=== PATIENT | male | born 1955 | race Caucasian/White ===

== ENCOUNTER 2024-01-15 13:54 | Outpatient (AMB) | payer OTHER, SELFPAY ==
--- NOTE | 2024-01-15 14:20 | MHC.OFFVIS ---
Intake Visit Reasons: nocturia Intake Note: New patient is present for Urgency/Prostatism Was previous patient at [facility] Patient states he had A Cystoscopy done at [facility] and had complications after. 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 He is a patient of Dr. Duarte. He has seen for the following urologic conditions - lower urinary tract symptoms - possible Peyronie's disease Lower urinary tract symptoms Prior evaluation with gross hematuria Cystoscopy mid 2022 Thinks has deviation of penis since then Nocturia 2-3 Hesitancy with urination Trial daily tadalafil. He will take photos to show me at next visit regarding penile curvature [facility] Medical History (Updated 01/15/24 @ 14:51 by Ronnell Hermosillo MD) Gross hematuria Prostatism Lung nodules Hyperlipidemia Diverticulitis of colon Back pain Surgical History (Updated 01/15/24 @ 14:16 by MARIO Sewell) H/O inguinal hernia repair History of hand surgery Family History (Updated 01/15/24 @ 14:17 by MARIO Sewell) Father Prostate cancer Social History (Updated 01/15/24 @ 14:17 by MARIO Sewell) Patient Tobacco Use Status: Current someday Tobacco user Review of Systems Const Denies chills and Denies fever(s) Card Reports no additional complaints and Denies syncope Resp Denies cough GI Denies abdominal pain and Denies heartburn Reports as per HPI and Denies change in libido Neuro Denies syncope Psych Denies change in libido Endo Denies change in libido Physical Exam Const General: cooperative, healthy appearing, comfortable and no acute distress Orientation/consciousness: patient oriented x3 HEENT Face and sinus: Yes normal facial exam Mouth: moist mucous membranes Neck Neck: Yes normal visual inspection, Yes full ROM and Yes trachea midline Chest Chest palpation & inspection: normal inspection of the chest Resp Effort & Inspection: normal respiratory effort, able to speak in complete sentences and no respiratory distress GI Inspection: Yes normal to inspection Back/Spine/Pelvis Cervical Spine: normal cervical lordosis Thoracic/Lumbar Spine: thoracic and lumbar spine normal to inspection Skin General skin exam: no rashes or lesions noted Neuro General: patient oriented x3, gait normal, tone normal and moves all extremities Extrem General: Yes normal to inspection and Yes capillary refill normal Office Procedures Post Void Residual Post Residual Void Post Void Residual (PVR): 0 [id number] Void Residual by ultrasound Results AMB Urinalysis, Automated UA Leukoctes 125 Evaristo/uL Last Edit by Clover Bahena Guillermina on 01/15/24 14:36 UA Nitrite Negative Last Edit by Clover Bahena [facility] on 01/15/24 14:36 UA Urobilinogen 0.2 mg/dL Last Edit by Clover Bahena A on 01/15/24 14:36 UA Protein 0 mg/dL Last Edit by Clover Bahena [facility] on 01/15/24 14:36 UA pH 7.0 Last Edit by Clover Bahena [facility] on 01/15/24 14:36 UA Blood 0 Haider/uL Last Edit by Clover Bahena [facility] on 01/15/24 14:36 UA Specific [place] 1.010 Last Edit by Clover Bahena [facility] on 01/15/24 14:36 UA Ketone Negative Last Edit by Clover Bahena [facility] on 01/15/24 14:36 UA Bilirubin 0 mg/dL Last Edit by Clover Bahena [facility] on 01/15/24 14:36 UA Glucose 0 mg/dL Last Edit by Clover Bahena [facility] on 01/15/24 14:36 Results Reviewed Results Reviewed: Laboratory Last Values Urine pH (Auto) 7.0 01/15/24 14:28 Specific [place] (Auto) 1.010 01/15/24 14:28 Urine Protein (Auto) 0 mg/dL 01/15/24 14:28 Glucose (UA)(Auto) 0 mg/dL 01/15/24 14:28 Urine Ketones (Auto) Negative 01/15/24: Urine Blood (Auto) 0 Haider/uL 01/15/24 14:28 Urine Nitrite (Auto) Negative 01/15/24 14:28 Urine Bilirubin (Auto) 0 mg/dL 01/15/24 14:28 Urine Urobilinogen (Auto) 0.2 mg/dL 01/15/24 14:28 Leukocyte Esterase (Auto) 125 Evaristo/uL 01/15/24 14:28 Assessment & Plan Assessment & Plan (1) Peyronie's disease: Code(s): N48.6 - Induration penis plastica Category: Medical (2) Urinary urgency: Code(s): R39.15 - Urgency of urination Category: Medical (3) Nocturia more than twice per night: Code(s): R35.1 - Nocturia Category: Medical Plan Trial tadalafil Orders: Orders AMB Post Void Residual by ultrasound Today R39.15 - Urgency of urination AMB Urinalysis Automated Today Z13.9 - Encounter for screening, unspecified Medications: New tadalafil 5 mg PO DAILY 90 days 90 tabs 0RF sexual activity R35.1 - Nocturia Patient Instructions: Imaging studies, laboratory and physical exam results were discussed and reviewed in detail. No major barriers to patient understanding were identified. An opportunity to ask questions regarding the treatment plan was provided. All questions were answered. The patient expressed understanding and agreement with the above treatment plan. The patient is aware they should contact our office by phone for worsening of their current condition or the appearance of new urologic symptoms. Compliance is encouraged with any medications and followup testing that is ordered. It is a privilege to participate in the urologic care of your patient. If you have any questions or concerns regarding treatment for the above conditions, or other urologic issues, please do not hesitate to contact me. The office telephone contact is [phone]. This note is constructed using voice recognition software. While every effort has been made to ensure accuracy network associate errors may have been included. Yours sincerely, Dr Ronnell Hermosillo MD, [facility] - Urology Providers of Expert, Compassionate Care for the Genitourinary System Coding Level of Care Code New Pt Level 4 (23272) Diagnoses Peyronie's disease N48.6 Urinary urgency R39.15 Nocturia more than twice per night R35.1 CPT Codes Post Residual Void - PVR CPT Code: 90362-[id number] Void Residual by ultrasound ([id number])
== END 2024-01-15 14:55 | disposition home or self-care (01) ==
PROVIDERS: PCP Internal Medicine; Visit Provider Urology
DX: N48.6 Induration penis plastica (principal); R39.15 Urgency of urination; R35.1 Nocturia; Z13.9 Encounter for screening, unspecified
CPT/HCPCS: 99204

== ENCOUNTER → 2024-01-15 13:54 | Outpatient (BNVA) | payer OTHER, SELFPAY | PROVIDERS: PCP Internal Medicine; Visit Provider Urology | DX: R35.1 Nocturia (principal); R39.15 Urgency of urination; N48.6 Induration penis plastica | CPT/HCPCS: 51798; 81003 ==

== ENCOUNTER 2024-05-03 14:13 | Outpatient (AMB) | payer MEDICARE, SELFPAY ==
--- NOTE | 2024-05-03 14:33 | A.OFFVIS_ITS ---
Intake Visit Reasons: 3 month Med Review(Tadalafil) Intake Note: Patient is present for 3m med review Urology Medication:tadalafil Antibiotic Allergy:sulfa Blood Thinner:none Computer Aided Design Technician Required: No Allergies Sulfa (Sulfonamide Antibiotics) [Sulfa (Sulfonamides)] Allergy (Mild, Verified 05/03/24 14:34) RASH Medication List - Last Reconciled 05/03/24 by Ronnell Hermosillo MD guselkumab (Tremfya) 100 mg subcut Q8W pentoxifylline ER 400 mg PO BID 90 days tadalafil 5 mg PO DAILY 90 days vitamin E (dl, acetate) 450 mg PO DAILY 90 days HPI Comments Details: Tello is a very pleasant male. He is a patient of Dr. Duarte. He has seen for the following urologic conditions - lower urinary tract symptoms - Peyronie's disease Response to daily tadalafil adequate for erection and stabilizing bladder Does drink too much water before going to bed Primary issue currently is Peyronie's Discussed conservative Peyronie's protocol with combination medical therapy and vacuum pump Printed information provided Persistent microscopic hematuria with leukocytes. Peyronie's 45 degree upward curvature Trial combination medical therapy with vacuum pump Lower urinary tract symptoms Prior evaluation with gross hematuria - persistent microscopic hematuria Cystoscopy mid 2022 Thinks has deviation of penis since then Nocturia 2-3 Hesitancy with urination PFSH Medical History (Updated 01/15/24 @ 14:51 by Ronnell Hermosillo MD) Gross hematuria Prostatism Lung nodules Hyperlipidemia Diverticulitis of colon Back pain Surgical History (Updated 01/15/24 @ 14:16 by MARIO Sewell) H/O inguinal hernia repair History of hand surgery Family History (Updated 01/15/24 @ 14:17 by MARIO Sewell) Father Prostate cancer Social History (Updated 01/15/24 @ 14:17 by MARIO Sewell) Patient Tobacco Use Status: Current someday Tobacco user Review of Systems Const Denies chills and Denies fever(s) Card Reports no additional complaints and Denies syncope Resp Denies cough GI Denies abdominal pain and Denies heartburn Reports as per HPI and Denies change in libido Neuro Denies syncope Psych Denies change in libido Endo Denies change in libido Physical Exam Const General: cooperative, healthy appearing, comfortable and no acute distress Orientation/consciousness: patient oriented x3 HEENT Face and sinus: Yes normal facial exam Mouth: moist mucous membranes Neck Neck: Yes normal visual inspection, Yes full ROM and Yes trachea midline Chest Chest palpation & inspection: normal inspection of the chest Resp Effort & Inspection: normal respiratory effort, able to speak in complete sentences and no respiratory distress GI Inspection: Yes normal to inspection Back/Spine/Pelvis Cervical Spine: normal cervical lordosis Thoracic/Lumbar Spine: thoracic and lumbar spine normal to inspection Skin General skin exam: no rashes or lesions noted Neuro General: patient oriented x3, gait normal, tone normal and moves all extremities Extrem General: Yes normal to inspection and Yes capillary refill normal Results AMB Urinalysis, Automated UA Leukoctes 500 Evaristo/uL Last Edit by FAIZAN Sullivan on 05/03/24 14:54 UA Nitrite Negative Last Edit by FAIZAN Sullivan on 05/03/24 14:54 UA Urobilinogen 0.2 mg/dL Last Edit by FAIZAN Sullivan on 05/03/24 14:5 4 UA Protein 15 mg/dL Last Edit by Hiren Starks CCM on 05/03/24 14:54 UA pH 6.0 Last Edit by Hiren Starks CCM on 05/03/24 14:54 UA Blood 200 Haider/uL Last Edit by Hiren Starks CCM on 05/03/24 14:54 UA Specific [place] 1.020 Last Edit by FAIZAN Sullivan on 05/03/24 14: 54 UA Ketone Negative Last Edit by FAIZAN Sullivan on 05/03/24 14:54 UA Bilirubin 0 mg/dL Last Edit by Hiren Starks CCM on 05/03/24 14:54 UA Glucose 0 mg/dL Last Edit by Hiren Starks CCM on 05/03/24 14:54 Assessment & Plan Assessment & Plan (1) Peyronie's disease: Code(s): N48.6 - Induration penis plastica Category: Medical (2) Urinary urgency: Code(s): R39.15 - Urgency of urination Category: Medical (3) Nocturia more than twice per night: Code(s): R35.1 - Nocturia Category: Medical Plan Six-month follow-up Orders: Orders AMB Urinalysis Automated Today Z13.9 - Encounter for screening, unspecified Medications: New pentoxifylline ER 400 mg PO BID 90 days 180 tabs 1RF N48.6 - Induration penis plastica vitamin E (dl, acetate) 450 mg PO DAILY 90 days 90 caps 1RF N48.6 - Induration penis plastica Patient Instructions: Imaging studies, laboratory and physical exam results were discussed and reviewed in detail. No major barriers to patient understanding were identified. An opportunity to ask questions regarding the treatment plan was provided. All questions were answered. The patient expressed understanding and agreement with the above treatment plan. The patient is aware they should contact our office by phone for worsening of their current condition or the appearance of new urologic symptoms. Compliance is encouraged with any medications and followup testing that is ordered. It is a privilege to participate in the urologic care of your patient. If you have any questions or concerns regarding treatment for the above conditions, or other urologic issues, please do not hesitate to contact me. The office telephone contact is [phone]. This note is constructed using voice recognition software. While every effort has been made to ensure accuracy video game designer errors may have been included. Yours sincerely, Dr Ronnell Hermosillo MD, [facility] - Urology Providers of Expert, Compassionate Care for the Genitourinary System Coding Level of Care Code Est Pt Level 4 (24255) Diagnoses Peyronie's disease N48.6 Urinary urgency R39.15 Nocturia more than twice per night R35.1
== END 2024-05-03 15:12 | disposition home or self-care (01) ==
PROVIDERS: PCP Internal Medicine; Visit Provider Urology
DX: N48.6 Induration penis plastica (principal); R39.15 Urgency of urination; R35.1 Nocturia; Z13.9 Encounter for screening, unspecified
CPT/HCPCS: 99214

== ENCOUNTER → 2024-05-03 14:13 | Outpatient (BNVA) | payer OTHER, SELFPAY | PROVIDERS: PCP Internal Medicine; Visit Provider Urology | DX: N48.6 Induration penis plastica (principal); R39.15 Urgency of urination; R35.1 Nocturia | CPT/HCPCS: 81003 ==

== ENCOUNTER 2024-11-01 08:50 | Outpatient (AMB) | payer MEDICARE, SELFPAY ==
--- NOTE | 2024-11-01 09:06 | A.OFFVIS_ITS ---
Intake Visit Reasons: 6m follow up Intake Note: Patient is present for 6M F/U Urology Medication:TADALAFIL,VITAMIN E,PENTOXIFYLLINE Antibiotic Allergy:SULFA Blood Thinner:NONE Solution Make Up Operator Required: No Allergies Sulfa (Sulfonamide Antibiotics) [Sulfa (Sulfonamides)] Allergy (Mild, Verified 11/01/24 09:07) RASH HPI Comments Details: Tello is a very pleasant male. He is a patient of Dr. Duarte. He has seen for the following urologic conditions - lower urinary tract symptoms - Peyronie's disease Accompanied by Response to daily tadalafil adequate for erection and stabilizing bladder Peyronie's stabilized with protocol Reviewing photographs has dorsal distal curve Does report hinging Discussed options however distal hinge does not respond well to most therapy except for penile prosthetic placement At this stage willing to continue with observation UA normal Would like to try tamsulosin for urination Peyronie's 45 degree upward curvature Trial combination medical therapy with vacuum pump Lower urinary tract symptoms Prior evaluation with gross hematuria - persistent microscopic hematuria Cystoscopy mid 2022 Thinks has deviation of penis since then Nocturia 2-3 Hesitancy with urination PFSH Medical History (Updated 01/15/24 @ 14:51 by Ronnell Hermosillo MD) Gross hematuria Prostatism Lung nodules Hyperlipidemia Diverticulitis of colon Back pain Surgical History (Updated 01/15/24 @ 14:16 by MARIO Sewell) H/O inguinal hernia repair History of hand surgery Family History (Updated 01/15/24 @ 14:17 by MARIO Sewell) Father Prostate cancer Social History (Updated 01/15/24 @ 14:17 by AMRIO Sewell) Patient Tobacco Use Status: Current someday Tobacco user Review of Systems Const Denies chills and Denies fever(s) Card Reports no additional complaints and Denies syncope Resp Denies cough GI Denies abdominal pain and Denies heartburn Reports as per HPI and Denies change in libido Neuro Denies syncope Psych Denies change in libido Endo Denies change in libido Physical Exam Const General: cooperative, healthy appearing, comfortable and no acute distress Orientation/consciousness: patient oriented x3 HEENT Face and sinus: Yes normal facial exam Mouth: moist mucous membranes Neck Neck: Yes normal visual inspection, Yes full ROM and Yes trachea midline Chest Chest palpation & inspection: normal inspection of the chest Resp Effort & Inspection: normal respiratory effort, able to speak in complete sentences and no respiratory distress GI Inspection: Yes normal to inspection Back/Spine/Pelvis Cervical Spine: normal cervical lordosis Thoracic/Lumbar Spine: thoracic and lumbar spine normal to inspection Skin General skin exam: no rashes or lesions noted Neuro General: patient oriented x3, gait normal, tone normal and moves all extremities Extrem General: Yes normal to inspection and Yes capillary refill normal Results AMB Urinalysis, Automated UA Leukoctes 15 Evaristo/uL Last Edit by FAIZAN Sullivan on 11/01/24 09:40 UA Nitrite Negative Last Edit by FAIZAN Sullivan on 11/01/24 09:40 UA Urobilinogen 3.5 mg/dL Last Edit by FAIZAN Sullivan on 11/01/24 09:4 0 UA Protein 15 mg/dL Last Edit by FAIZAN Sullivan on 11/01/24 09:40 UA pH 7.0 Last Edit by FAIZAN Sullivan on 11/01/24 09:40 UA Blood 0 Haider/uL Last Edit by FAIZAN Sullivan on 11/01/24 09:40 UA Specific [place] 1.015 Last Edit by FAIZAN Sullivan on 11/01/24 09: 40 UA Ketone Negative Last Edit by FAIZAN Sullivan on 11/01/24 09:40 UA Bilirubin 0 mg/dL Last Edit by FAIZAN Sullivan on 11/01/24 09:40 UA Glucose 0 mg/dL Last Edit by FAIZAN Sullivan on 11/01/24 09:40 Assessment & Plan Assessment & Plan (1) Urinary urgency: Code(s): R39.15 - Urgency of urination Category: Medical (2) Peyronie's disease: Code(s): N48.6 - Induration penis plastica Category: Medical (3) Nocturia more than twice per night: Code(s): R35.1 - Nocturia Category: Medical Plan Three-month follow-up tele Orders: Orders AMB Urinalysis Automated Today Z13.9 - Encounter for screening, unspecified Medications: New tamsulosin 0.4 mg PO BEDTIME 90 days 90 caps 1RF N13.8 - Other obstructive and reflux uropathy, N40.1 - Benign prostatic hyperplasia with lower urinary tract symptoms, R35.1 - Nocturia Patient Instructions: This note is constructed using voice recognition software. While every effort has been made to ensure accuracy herd tester errors may have been included. Imaging studies, laboratory and physical exam results were discussed and reviewed in detail. No major barriers to patient understanding were identified. An opportunity to ask questions regarding the treatment plan was provided. All questions were answered. The patient expressed understanding and agreement with the above treatment plan. The patient is aware they should contact our office by phone for worsening of their current condition or the appearance of new urologic symptoms. Compliance is encouraged with any medications and followup testing that is ordered. It is a privilege to participate in the urologic care of your patient. If you have any questions or concerns regarding treatment for the above conditions, or other urologic issues, please do not hesitate to contact me. The office telephone contact is [phone]. Sincerely, Dr Ronnell Hermosillo MD, [facility] - Urology Compassionate Specialist Care for the Genitourinary System Coding Level of Care Code Est Pt Level 4 (48627) Diagnoses Urinary urgency R39.15 Peyronie's disease N48.6 Nocturia more than twice per night R35.1
--- OUTSIDE RECORDS SUMMARY | 2024-11-01 09:23 | XMS_ITS | Encounter Summary ---
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 Name Role Phone Jerry Aponte MD Primary Care Provider [phone] Reason for Referral * Imaging (Routine) - Authorized Specialty Diagnoses / Procedures Referred By Contac t Referred To Contact Radiology Diagnoses Encounter for screening for malignant neoplasm of lung in patient with less than 30 pack year smoking history Procedures LDCT LUNG SCREENING ANNUAL LDCT Lung Screening - 12 Month Follow Up LDCT Chest wo Contrast - Follow Up Incidental Finding Jerry Aponte MD [address] [place] [id number] Phone: tel: fax: [facility] Radiology - Central Scheduling [place] Phone: tel: fax: Referral ID Status Reason Start Date Expiration Date Visits Requested Visits Authorized [id number] Authorized Perform Procedure 10/04/2024 10/04/2025 1 1 Encounter Details Date Type Department Care Team (Late st Contact Info) Description 10/13/2024 Ancillary Orders [facility] Primary Care [place] [address] [place], [place] [id number] Jerry Aponte MD [address] [place] [id number] Encounter for screening for malignant neoplasm of lung in patient with less than 30 pack year smoking history (Primary Dx) Social History Tobacco Use Types Packs/Day Years Used Date Smoking Tobacco: Former Cigarettes 0.8 40 1 977 - 08/03/2016 Smokeless Tobacco: Never Alcohol Use Standard Drinks/Week Comments Yes 2 (1 standard drink = 0.6 oz pur e alcohol) Humiliation, Afraid, Rape, and Kick questionnair e Answer Date Recorded Within the last year, have y ou been afraid of your partner or ex-partner? No 09/27/2024 Emotionally Abused Not on file 09/27/2024 Physically Abused Not on file 09/27/2024 Sexually Abused Not on file 09/27/2024 Overall Financial Resource Strain (CARDIA) Answe r Date Recorded How hard is it for you to pa y for the very basics like food, housing, medical care, and heating? Not very hard 09/27/2024 PHQ-2 Answer Date Recorded Patient Health Questionnaire-2 Score 0 09/27/2024 Hunger Vital Sign Answer Date Recorded Within the past 12 months, y ou worried that your food would run out before you got the money to buy more. Never true 09/27/19 Ran Out of Food in the Last Year Not on file 09/27/2024 PRAPARE - Transportation Answer Date Re corded In the past 12 months, has l ack of transportation kept you from medical appointments or from getting medications? No 09/27/2024 Lack of Transportation (Non-Medical) Not on file 09/27/2024 Sex and Gender Information Value Date Recorded Sex Assigned at Not on file Legal Sex Male 3:27 PM EST Gender Identity Not on file Sexual Orientation Not on file documented as of this encounter Plan of Treatment Upcoming Encounters Date Type Department Care Team (Late st Contact Info) Description 10/05/2025 8:45 AM EST Office Visit [facility] Primary [facility] [place] [address] [id number] Jerry Aponte MD [address] [facility] [address] [place], [place] [id number] wellness documented as of this encounter Results * LDCT LUNG SCREENING ANNUAL (10/17/2024 4:18 PM EDT) Anatomical Region Laterality Modality Chest Computed Tomogra phy 10/18/2024 9:02 PM EDT Impressions 10/18/2024 9:03 PM EDT No suspicious pulmonary nodules. LRAD Assessment: ??Benign - 2 LRAD Recommendation: ??Follow up LDCT in 12 Months. ??An order for an LDCT Lung Screening Annual ([id number]) can be placed. LRAD Modifier: Narrative 10/18/2024 9:03 PM EDT CLINICAL HISTORY: Encounter for screening for malignant neoplasm of lung in patient with less than 30 pack year smoking history, Lung nodule, < 6mm, high cancer risk, stable on prior exam, previous 30 pk/yr smoker, Former Tobacco Dependence, , Cigarettes, PROTOCOL: Axial images with multiplanar reformations, utilizing a standard low dose protocol. ? CT DOSE: Modern CT scanner with radiation dose reduction techniques were used. Average CTDIvol: 1.62 mGy, Total DLP: 66.33 mGy-cm. Effective Dose: 0.93 mSv (ICRP 103). COMPARISON: None. FINDINGS: Pulmonary parenchyma and airways: Lungs are clear. No suspicious pulmonary nodules. Several scattered subpleural pulmonary nodules measuring 4 mm or less. Pleural space: No pleural effusion Heart and great vessels: Heart size is within normal limits. Aorta is normal in course and caliber. Lymph nodes: No axillary, mediastinal or hilar lymphadenopathy. Visualized upper abdomen: Unremarkable Bones and soft tissues: No suspicious lesions identified. Procedure Note Stanislaw Romero MD - 10/18/2024 CLINICAL HISTORY: Encounter for screening for malignant neoplasm of lungin patient with less than 30 pack year smoking history, Lung nodule, <6mm, high cancer risk, stable on prior exam, previous 30 pk/yr smoker,Former Tobacco Dependence, , Cigarettes, PROTOCOL: Axial images with multiplanar reformations, utilizing a standard low doseprotocol. CT DOSE: Modern CT scanner with radiation dose reduction techniques were used.Average CTDIvol: 1.62 mGy, Total DLP: 66.33 mGy-cm. Effective Dose: 0.93mSv (ICRP 103). COMPARISON: None. FINDINGS: Pulmonary parenchyma and airways: Lungs are clear. No suspicious pulmonarynodules. Several scattered subpleural pulmonary nodules measuring 4 mm orless. Pleural space: No pleural effusion Heart and great vessels: Heart size is within normal limits. Aorta isnormal in course and caliber. Lymph nodes: No axillary, mediastinal or hilar lymphadenopathy. Visualized upper abdomen: Unremarkable Bones and soft tissues: No suspicious lesions identified. IMPRESSION: No suspicious pulmonary nodules. LRAD Assessment: Benign - 2 LRAD Recommendation: Follow up LDCT in 12 Months. An order for an LDCTLung Screening Annual ([id number]) can be placed. LRAD Modifier: Jerry Aponte MD IMG CT PROCEDURES Final R esult documented in this encounter Visit Diagnoses Diagnosis Encounter for screening for malignant neoplasm of lung in patient with less than 30 pack year smoking history- Primary Encounter for screening for malignant neoplasm of lung in patient with less than 30 pack year smoking history documented in this encounter Additional Health Concerns Assessment Noted Time PHQ-9 Depression Total Score: 0 09/27/19 25 11:45 AM EST documented as of this encounter Care Teams [employer] Truck Driver Relationship Specialty Start Date End Date Jerry Aponte MD [address] [place] [id number] PCP - General 07/29/24 documented as of this encounter
--- OUTSIDE RECORDS SUMMARY | 2024-11-01 09:23 | XMS_ITS ---
Author Name [facility] Organization Unknown History of Medication Use Medication Directions Dispensed Refills Start Date End Date Stat tadalafiL (CIALIS) 5 mg tablet Take 1 tablet (5 mg total) by mouth 1 (one) time each day. 04/12/2024 active guselkumab (Tremfya) 100 mg/mL auto-injector 04/28/2019 active Problems Problem Status Onset Date Problem Type Date of Resolution Source Peyronie disease active 2024-08-05 ProblemAct C TMDSX[facility] Hyperlipidemia, mild active 2024-08-08 ProblemAct [facility]MDS[facility] Other emphysema active 2024-10-[address] [facility] Prostate cancer screening active 2024-08-05 ProblemAct CTMDSXH Encounter for screening for malignant neoplasm of lung in patient with less than 30 pack year smoking history active EncounterDiagnosisAct CTMDSXH Pulmonary nodule, left active 2024-10-04 ProblemAct [facility]MDS[facility] Diverticulosis active 2024-08-08 ProblemAct CTM DSXH Benign prostatic hyperplasia with nocturia active 2024-08-05 ProblemAct [facility]MDSX[facility] Elevated blood pressure reading without diagnosis of hypertension active 2024-08-08 ProblemAct [facility]MDS[facility] Psoriasis active 2024-08-05 ProblemAct [facility]MDSX[facility] Pulmonary nodules active 2024-08-08 ProblemAct [facility]MDSX[facility] Lipoma of left upper extremity active 2024-08-08 ProblemAct [facility]MDSX[facility] Immunizations Vaccine Date Source Lot Number Status Pfizer Omicron 12yrs+ Vaccination (Comirnaty) 05/30/2024 C TMDSXH [id number] completed Influenza, Unspecified 05/09/2024 CTMDSXH co mpleted Encounters Encounter Type Encounter Reason Primary Diagnosis Location Date Ambulatory Encounter for screening for malignant neoplasm of respiratory organs Encounter for screening for malignant neoplasm of respiratory organs [facility] 10/17/2024 Ambulatory Encounter for genera l adult medical examination without abnormal findings Encounter for general adult medical examination without abnormal findings [facility] 10/04/2024 Ambulatory Psoriasis, unspecified Psoriasis, unspecified [facility] 08/05/2024 Ambulatory Encounter for genera l adult medical examination without abnormal findings Encounter for general adult medical examination without abnormal findings [facility] 08/05/2024 Ambulatory Encounter for pre-employment examination Encounter for pre-employment examination [facility] 08/04/2024 Care Team Organization Name Specialty Phone Email Start Date End Da darlin [facility] 08/01/2024 [facility] 06/22/2024
--- OUTSIDE RECORDS SUMMARY | 2024-11-01 09:23 | XMS_ITS | Encounter Summary ---
Author Organization [facility] Address [address] [place] [address] Care Team Providers Care Draw Off Worker Name Role Phone Jerry Aponte MD Primary Care Provider [phone] [phone] Encounter Details Date Type Department Care Team (Late st Contact Info) Description 10/13/2024 Ancillary Orders [facility] Primary [facility] [place] [address] [phone] Jerry Aponte MD [address] [place] [phone] Encounter for annual wellness visit (Primary Dx); Pulmonary nodule, left; Other emphysema (HCC); Hyperlipidemia, mild; Encounter for screening for malignant neoplasm of lung in patient with less than 30 pack year smoking history Social History Tobacco Use Types Packs/Day Years [...] Description 10/05/2025 8:45 AM EST [facility] [address] [address] Jerry Aponte MD [facility] [address] [address] wellness documented as of this encounter Visit Diagnoses Diagnosis Encounter for annual wellness visit- Primary Pulmonary nodule, left Other diseases of lung, not elsewhere classified Other emphysema (HCC) Other emphysema Hyperlipidemia, mild Encounter for screening for malignant neoplasm of lung in patient with less than 30 pack year smoking history documented in this encounter Additional Health Concerns Assessment Noted Time PHQ-9 Depression Total Score: 0 09/27/19 11:45 AM EST documented as of this encounter Care Teams Draw Off Worker Relationship Specialty Start Date End Date Jerry Aponte MD [address] [address] PCP - General 07/29/24 documented as of this encounter
--- OUTSIDE RECORDS SUMMARY | 2024-11-01 09:23 | XMS_ITS | Clinical Summary ---
Author Organization [facility] Address [address] [place] [address] Care Team Providers Care Network Operations Project Manager Name Role Phone Jerry Aponte MD Primary Care Provider +1 [phone] Allergies Active Allergy Reactions Criticality Noted Date Comments Sulfamethoxazole-Trimethoprim Hives Low 2023 Medications tadalafiL (CIALIS) 5 mg tablet Take 1 tablet (5 mg total) by mouth 1 (one) time each day. 4 Active guselkumab (Tremfya) 100 mg/mL auto-injector 9 Active pentoxifylline (Trental) 400 mg CR tablet Take 1 tablet (400 mg total) by mouth 2 (two) times a day. 4 10/05/19 25 Discontinued Active Problems Problem Noted Date Diagnosed Date Encounter for annual wellness visit 10/04/2024 Pulmonary nodule, left 10/04/2024 Other emphysema 10/04/2024 Hyperlipidemia, mild 08/08/2024 Lipoma of left upper extremity 08/08/2024 Elevated blood pressure read ing without diagnosis of hypertension 08/08/2024 Diverticulosis 08/08/2024 Pulmonary nodules 08/08/2024 Annual physical exam 08/05/2024 Psoriasis 08/05/2024 Peyronie disease 08/05/2024 Benign prostatic hyperplasia with nocturia 08/05 Prostate cancer screening 08/05/2024 Encounters Date Type Department Care Team Description 10/19/2024 Results Follow-Up [facility] Primary Care [address] [address] Jerry Aponte MD 10/17/2024 3:53 PM EDT - 10/17/2024 11:59 PM EDT Hospital Encounter [facility] (CT Scan) [address] [place] [address] Encounter for screening for malignant neoplasm of lung in patient with less than 30 pack year smoking history Discharge Disposition: Home or Self Care 10/13/2024 Ancillary Orders [facility] [address] [place] [address] Jerry Aponte MD Encounter for screening for malignant neoplasm of lung in patient with less than 30 pack year smoking history (Primary Dx) 10/13/2024 Ancillary Orders [facility] [address] [place] [address], [place] [address] Jerry Aponte MD Encounter for annual wellness visit (Primary Dx); Pulmonary nodule, left; Other emphysema (HCC); Hyperlipidemia, mild; Encounter for screening for malignant neoplasm of lung in patient with less than 30 pack year smoking history 10/11/2024 Orders Only [facility] [address] [place] [address] Transcribe, External Ordering Provider 10/05/2024 Telephone [facility] [address] [place] [address] Jerry Aponte MD Needs more info 10/04/2024 8:30 AM EST Office Visit [facility] [address] [place] [address], [place] [address] Jerry Aponte MD Encounter for annual wellness visit (Primary Dx); Pulmonary nodule, left; Other emphysema (HCC); Hyperlipidemia, mild 10/04/2024 Procedure Pass [facility] [address] [place] [address] 08/05/2024 10:45 AM EST Office Visit [facility] [address] [place] [address] Jerry Aponte MD Annual physical exam (Primary Dx); Psoriasis; Peyronie disease; Benign prostatic hyperplasia with nocturia; Prostate cancer screening; Hyperlipidemia, mild; Diverticulosis; Elevated blood pressure reading without diagnosis of hypertension; Lipoma of left upper extremity; Pulmonary nodules from Last 3 Months Immunizations Immunization Administration Dates Next Due Influenza, Unspecified 05/09/2024 Pfizer Omicron 12yrs+ Vaccination (Comirnaty) Family History Medical History Relation Name Comments Cancer Father Tee Eldridge Prostate cancer Father Tee Eldridge Cancer Mother Shilpa Eldridge Colon cancer Mother Shilpa Eldridge Relation Name Status Comments Father Tee Eldridge Mother Shilpa Eldridge Social History Tobacco Use Types Packs/Day Years [...] on file Sexual Orientation Not on file Last Filed Vital Signs Vital Sign Reading Time Taken Comments Blood Pressure 132/76 10/04/2024 8:24 AM EST Pulse 74 10/04/2024 8:24 AM EST Temperature 36.3 ??C (97.3 ??F) 10/04/2024 8:24 AM ES T Respiratory Rate 18 10/04/2024 8:24 AM EST Oxygen Saturation 99% 10/04/2024 8:24 AM EST Inhaled Oxygen Concentration - - Weight 81.6 kg (180 lb) 10/17/2024 4:13 PM EDT Height 167.6 cm (5' 6 ) 10/17/2024 4:13 PM EDT Body Mass Index 29.05 10/17/2024 4:13 PM EDT Plan of Treatment Upcoming Encounters Date Type Department Care Team (Late st Contact Info) Description 10/05/2025 8:45 AM EST Office Visit [facility] [address] [address] Jerry Aponte MD [address] [address] wellness Health Maintenance Due Date Last Done Comments CT Colonography 1957 FIT-DNA 1957 FIT 1957 FOBT 1957 Hepatitis C Screening 1957 Sigmoidoscopy 1957 Pneumococcal Vaccine: 50+ Years (1 of 2 - PCV) 1976 Tdap and Td Vaccines Adult 1976 Zoster Vaccines (1 of 2) 2007 RSV 60+ (1 - Risk 60-74 year s 1-dose series) 2017 Abdominal Aortic Aneurysm (AAA) Screen 2022 Fall Risk Screening 2022 COVID-19 Vaccine (2 - 2023-2 5 season) 2024 05/30/2024 Medicare Annual Wellness Visit 10/04/2025 10/04/2024, 10/04/2024 Colonoscopy 06/08/2026 06/08/2023 Colorectal Cancer Screening 06/08/2026 Influenza Vaccine Completed 05/09/2024 Lipid Panel Discontinued 08/05/2024 HIB Vaccines Aged Out No longer eligi ble based on patient's age to complete this topic HPV Vaccines Aged Out No longer eligi ble based on patient's age to complete this topic Hepatitis A Vaccines Aged Out No long er eligible based on patient's age to complete this topic IPV Vaccines Aged Out No longer eligi ble based on patient's age to complete this topic Meningococcal Vaccine Aged Out No vijaya alejandra eligible based on patient's age to complete this topic RSV <20 Months Aged Out No longer xavier gible based on patient's age to complete this topic Procedures Procedure Name Priority Date/Time Associated Diagnosis Comments LDCT LUNG SCREENING Routine 10/17/2024 4 :18 PM EDT Encounter for screening for malignant neoplasm of lung in patient with less than 30 pack year smoking history CMP. Routine 08/05/2024 11:42 AM EST Psoriasis CBC WITH AUTO DIFFERENTIAL Routine 08/05/2024 11:42 AM EST Psoriasis TSH Routine 08/05/2024 11:42 AM EST Hyperlipidemia, mild PSA SCREENING Routine 08/05/2024 11:42 AM EST Prostate cancer screening LIPID PANEL WITH RATIOS Routine 08/05/2024 11:42 AM EST Psoriasis CMP. Routine 08/05/2024 11:42 AM EST Psoriasis CBC AND DIFFERENTIAL Routine 08/05/2024 11:42 AM EST Psoriasis QUANTIFERON-TB GOLD PLUS Routine 08/04/2024 9:29 AM EST Encounter for pre-employment examination from Last 3 Months Results * LDCT LUNG SCREENING ANNUAL (10/17/2024 4:18 PM EDT) Anatomical Region Laterality Modality Chest Computed Tomogra phy 10/18/2024 9:02 PM EDT Impressions 10/18/2024 9:03 PM EDT No suspicious pulmonary nodules. LRAD Assessment: ??Benign - 2 LRAD Recommendation: ??Follow up LDCT in 12 Months. ??An order for an LDCT Lung Screening Annual ([id number]) can be placed. LRAD Modifier: Narrative 10/18/2024 [...] An order for an LDCTLung Screening Annual ([id number]) can be placed. LRAD Modifier: Jerry Aponte MD [facility] CT PROCEDURES Final R esult * Comprehensive Metabolic Panel. (08/05/2024 11:42 AM EST) [facility] Sodium 138 136 - 145 mmol/L LAB CHEMISTRY METHOD 08/05/2024 4:37 PM EST LAB[facility] Comment:Effective 06/14/2024 , please note methodology change from indirect potentiometric procedure using an ion selective electrode (ISE) to indirect Integrated Multisensor Technology (IMT). Please also note reference range changes. Potassium 4.5 3.5 - 5.1 mmol/L LAB CHEMISTRY METHOD 08/05/2024 4:37 PM EST [facility] Comment:Effective 06/14/2024 , please note methodology change from indirect potentiometric procedure using an ion selective electrode (ISE) to indirect Integrated Multisensor Technology (IMT). Please also note reference range changes Chloride 102 98 - 107 mmol/L LAB CHEMISTRY METHOD 08/05/2024 4:37 PM EST LAB[facility] Comment:Effective 06/14/2024 , please note methodology change from indirect potentiometric procedure using an ion selective electrode (ISE) to indirect Integrated Multisensor Technology (IMT). Please also note reference range changes. CO2 28.6 20.0 - 31.0 mmol/L LAB CHEMISTRY METHOD 08/05/2024 4:37 PM EST [facility] Comment:Please note referenc e range changes effective 06/14/2024. Anion Gap 7 3 - 11 08/05/2024 4:37 PM EST [facility] Glucose Level 99 70 - 99 mg/dL LAB CHEMISTRY METHOD 08/05/2024 4:37 PM EST [facility] BUN 14 9 - 23 mg/dL LAB CHEMISTRY METHOD 08/05/2024 4:37 PM EST LAB[facility] Comment:Please note referenc e range changes effective 06/14/2024. Creatinine, Serum 0.9 0.7 - 1.3 mg/dL LAB CHEMISTRY METHOD 08/05/2024 4:[address] [facility] LABOR[facility]ORY SERVICES Comment:Please note referenc e range changes effective 06/14/2024. B/CR Ratio 15.6 6.0 - 23.0 08/05/2024 4:37 PM EST LAB[facility]ATORY SERVICES Glomerular Filtration Rate >=60 >=60 mL/min/1. 73 m2 LAB CHEMISTRY METHOD 08/05/2024 4:[address] [facility]ORY [facility] Comment:Calculation based on the Chronic Kidney Disease Epidemiology Collaboration(CKD-EPI) equation refit without adjustment for race. Calcium, Total 9.7 8.7 - 10.4 mg/dL LAB CHEMISTRY METHOD 08/05/2024 4:37 PM EST [facility] Comment:Please note referenc e range changes effective 06/14/2024. Total Protein 7.2 5.7 - 8.2 g/dL LAB CHEMISTRY METHOD 08/05/2024 4:37 PM EST LAB[facility] Comment:Please note referenc e range changes effective 06/14/2024. Albumin Level 4.4 3.2 - 4.8 g/dL LAB CHEMISTRY METHOD 08/05/2024 4:37 PM EST LAB[facility] Comment:Please note referenc e range changes effective 06/14/2024. A/G Ratio 1.6 1.1 - 3.0 08/05/2024 4:[address] [facility] LAB[facility]ORY SERVICES Total Bilirubin 0.8 0.1 - 1.2 mg/dL LAB CHEMISTRY METHOD 08/05/2024 4:[address] [facility] LAB[facility]ORY [facility] Comment:The [employer] CH Tota l Bilirubin_2 (TBil_2) assay is based on a chemical oxidation method using vanadate as an oxidizing agent. ALT 37 10 - 49 U/L LAB CHEMISTRY METHOD 08/05/2024 4:37 PM EST [facility] Comment:Please note referenc e range changes effective 06/14/2024. AST 30 <34 U/L LAB CHEMISTRY METHOD 08/05/2024 4:37 PM EST [facility] Comment:Please note referenc e range changes effective 06/14/2024. Alkaline Phosphatase 60 28 - 130 U/L LAB CHEMISTRY METHOD 08/05/2024 4:37 PM EST [facility] Comment:Please note referenc e range changes effective 06/14/2024. Blood Venous blood / Unknown Venipuncture / Unknown 08/05/2024 11:42 AM EST 08/05/2024 11:42 AM EST us Jerry Aponte MD LAB BLOOD ORDERABLES Monica elaine Result LABORATORY SERVICES CT:[id number] [place] [address], * CBC auto differential (08/05/2024 11:42 AM EST) Auto WBC 4.6 4.5 - 11.5 cells X 10*3/uL 08/05/2024 2:18 PM EST [facility] RBC 5.05 4.60 - 6.00 cells X 10*6/uL 08/05/2024 2:18 PM EST [facility] Hemoglobin 15.7 14.0 - 18.0 g/dL 08/05/2024 2:18 PM EST [facility] Hematocrit 47.3 40.0 - 54.0 % 08/05/2024 2:18 PM EST [facility] MCV 93.7 80.0 - 94.0 fL 08/05/2024 2:18 PM EST LAB[facility] MCH 31.1 26.0 - 32.0 pg 08/05/2024 2:18 PM EST LAB[facility] MCHC 33.2 32.0 - 37.0 g/dL 08/05/2024 2:18 PM EST [facility] RDW (CV) 12.0 11.5 - 14.5 % 08/05/2024 2:18 PM EST [facility] RDW (SD) 41.5 36.0 - 48.8 fL 08/05/2024 2:18 PM EST [facility] Platelets 225 150 - 450 cells X 10*3/uL 08/05/2024 2:18 PM EST [facility] MPV 10.9 9.5 - 12.3 fL 08/05/2024 2:18 PM EST LAB[facility] Granulocytes % 60.8 % 08/05/2024 2:18 PM EST [facility] Comment:Percent cell count r eference ranges have been removed. Per the [employer] recommendations, these ranges should not be reported when absolute cell count reference ranges are reported as this can lead to misinterpretation of CBC data. Immature Granulocytes % 0.7 % 08/05/2024 2:18 PM EST LAB[facility] Comment:Immature Granulocyte s (percent and absolute counts) include neutrophilic metamyelocytes, myelocytes, and promyelocytes. Lymphocytes % 22.4 % 08/05/2024 2:18 PM EST LAB[facility] Monocytes % 11.3 % 08/05/2024 2:18 PM EST LAB[facility] Eosinophils % 3.5 % 08/05/2024 2:18 PM EST LAB[facility] Basophils % 1.3 % 08/05/2024 2:18 PM EST LAB[facility] Gran # 2.8 2.3 - 8.6 cells X 10*3/uL 08/05/2024 2:18 PM EST LAB[facility] Comment:Please Note: Gran # is equivalent to ANC. IMM GRAN # 0.03 0.00 - 0.05 cells X 10*3/uL 08/05/2024 2:18 PM EST LAB[facility] Eosinophils # 0.2 0.0 - 0.4 cells X 10*3/uL 08/05/2024 2:18 PM EST LAB[facility] Lymphocytes # 1.0 0.8 - 4.8 cells X 10*3/uL 08/05/2024 2:18 PM EST LAB[facility] MONO # 0.5 0.1 - 1.3 cells X 10*3/uL 08/05/2024 2:18 PM EST LAB[facility] SERVICES BASOPHIL # 0.1 0.0 - 0.2 cells X 10*3/uL 08/05/2024 2:18 PM EST LAB[facility] Blood Venous blood / Unknown Venipuncture / Unknown 08/05/2024 11:42 AM EST 08/05/2024 11:42 AM EST us Jerry Aponte MD LAB BLOOD ORDERABLES Monica henry Result LABORATORY SERVICES CT:[id number] [place] [id number], * TSH with Reflex to Free T4 (08/05/2024 11:42 AM EST) TSH, High Sensitivity 0.648 0.550 - 4.780 uIU/mL LAB CHEMISTRY METHOD 08/05/2024 4:34 PM EST LAB[facility] Comment:Please note referenc e range changes effective 06/14/2024. Blood Venous blood / Unknown Venipuncture / Unknown 08/05/2024 11:42 AM EST 08/05/2024 11:42 AM EST Jerry Aponte MD LAB BLOOD ORDERABLES Monica l Result Performing Organization Address City/[facility]/ZIP Co de Phone Number LABORATORY SERVICES CT:[id number] [place] [address] * PSA, Screening (08/05/2024 11:42 AM EST) [facility] PSA Screen 0.6 0.0 - 4.0 ng/mL LAB CHEMISTRY METHOD 08/05/2024 4:30 PM EST LABOR[facility]ORY SERVICES Comment: Performed on [employer] IM Analyzer. Please note reference range changes effective 06/14/2024. Blood Venous blood / Unknown Venipuncture / Unknown 08/05/2024 11:42 AM EST 08/05/2024 11:42 AM EST Jerry Aponte MD LAB BLOOD ORDERABLES Monica l Result Performing Organization Address [facility] Co de Phone Number LABORATORY SERVICES [id number] [place] [address], * (ABNORMAL) Lipid Panel with Ratios (08/05/2024 11:42 AM EST) [facility] Cholesterol 206(H) <200 mg/dL LAB CHEMISTRY METHOD 08/05/2024 4:37 PM EST LAB[facility]ORY SERVICES Comment:Please note referenc e range changes effective 06/14/2024. Triglycerides 129 <150 mg/dL LAB CHEMISTRY METHOD 08/05/2024 4:37 PM EST LAB[facility] SERVICES HDL 62 >=40 mg/dL LAB CHEMISTRY METHOD 08/05/2024 4:37 PM EST LAB[facility] SERVICES Comment:Please note referenc e range changes effective 06/14/2024. % Total 30 08/05/2024 4:37 PM EST LAB[facility]ORY SERVICES LDL Calculated 118(H) <100 mg/dL 08/05/2024 4:37 PM EST LAB[facility] Cholesterol HDL Ratio 3.3 08/05/2024 4:37 PM EST LAB[facility] SERVICES LDL/HDL Ratio 1.9 08/05/2024 4:37 PM EST LAB[facility] SERVICES NON HDL CHOLESTEROL 144(H) <130 08/05/2024 4:37 PM EST LAB[facility] Blood Venous blood / Unknown Venipuncture / Unknown 08/05/2024 11:42 AM EST 08/05/2024 11:42 AM EST us Jerry Aponte MD LAB BLOOD ORDERABLES Monica henry Result LABORATORY SERVICES CT:[id number] [place] [address], * Quantiferon-TB Gold Plus (08/04/2024 9:29 AM EST) [facility] Quantiferone-TB Gold Plus, 1 Tube NEGATIVE NEGATIVE 08/06/2024 2:02 PM EST [facility] Comment: Negative test result. M. tuberculosis complex infection unlikely. NIL 0.03 IU/mL 08/06/2024 2:02 PM EST [facility] Mitogen-NIL >10.00 IU/mL 08/06/2024 2:02 PM EST [facility] TB1-NIL 0.00 IU/mL 08/06/2024 2:02 PM EST [facility] TB2-NIL 0.00 IU/mL 08/06/2024 2:02 PM EST [facility] Comment: The Nil tube value reflects the background interferon gamma immune response of the patient's blood sample. This value has been subtracted from the patient's displayed TB and Mitogen results. Lower than expected results with the Mitogen tube prevent false-negative Quantiferon readings by detecting a patient with a potential immune suppressive condition and/or suboptimal pre-analytical specimen handling. The TB1 Antigen tube is coated with the M. tuberculosis-specific antigens designed to elicit responses from TB antigen primed CD4+ helper T-lymphocytes. The TB2 Antigen tube is coated with the M. tuberculosis-specific antigens designed to elicit responses from TB antigen primed CD4+ helper and CD8+ cytotoxic T-lymphocytes. For additional information, please refer to https://education.Zappli.Crowdasaurus/faq/HJM111 (This link is being provided for informational/ educational purposes only.) Blood Venous blood / Unknown Venipuncture / Unknown 08/04/2024 9:29 AM EST 08/04/2024 9:29 AM EST Narrative [facility] - 08/06/2024 2:02 PM EST Performing Organization Information: ?Site ID: [id number] ?Name: [facility] ?Address: [address] [place] [id number] ?Director: Joselo Castro M.D. us Adrian Feng MD LAB BLOOD ORDERABLES Monica l Result [facility] [address] [facility], [address] [place] [address], [place] [address], from Last 3 Months Insurance MEDICARE [place] [address] [address] MED Care Teams Network Operations Project Manager Relationship Specialty Start Date End Date Jerry Aponte MD [address] [place] [address] PCP - General 07/29/24
--- OUTSIDE RECORDS SUMMARY | 2024-11-01 09:23 | XMS_ITS | Encounter Summary ---
Author Organization [facility] Address [address] [place] [address] Care Team Providers Care Medical Artist Name Role Phone Jerry Aponte MD Primary Care Provider [phone] Encounter Details Date Type Department Care Team (Late st Contact Info) Description 10/04/2024 Procedure Pass [facility] Radiology, [facility] (CT Scan) [address] [place] [phone] Social History Tobacco Use Types Packs/Day Years [...] Description 10/05/2025 8:45 AM EST Office Visit [facility] [address] [place] [address] Jerry Aponte MD [address] [place] [phone] wellness documented as of this encounter Visit Diagnoses Not on filedocumented in this encounter Additional Health Concerns Assessment Noted Time PHQ-9 Depression Total Score: 0 09/27/19 25 11:45 AM EST documented as of this encounter Care Teams Medical Artist Relationship Specialty Start Date End Date Jerry Aponte MD [address] [place] [address] PCP - General 07/29/24 documented as of this encounter
--- OUTSIDE RECORDS SUMMARY | 2024-11-01 09:23 | XMS_ITS | Encounter Summary ---
Author Organization [facility] Address [address] [place] [address] Care Team Providers Care Tooth Clerk Name Role Phone Jerry Aponte MD Primary Care Provider [phone] Encounter Details Date Type Department Care Team (Late st Contact Info) Description 10/19/2024 Results Follow-Up [facility] Primary Care [place] [id number] Jerry Aponte MD [address] [place], [place] [id number] Social History Tobacco Use Types Packs/Day Years [...] Description 10/05/2025 8:45 AM EST Office Visit [facility] [address] [place] [phone] Jerry Aponte MD [address] [place] [phone] wellness documented as of this encounter Visit Diagnoses Not on filedocumented in this encounter Additional Health Concerns Assessment Noted Time PHQ-9 Depression Total Score: 0 09/27/19 11:45 AM EST documented as of this encounter Care Teams Tooth Clerk Relationship Specialty Start Date End Date Jerry Aponte MD [address] [place] [id number] PCP - General 07/29/24 documented as of this encounter
== END 2024-11-01 09:49 | disposition home or self-care (01) ==
LOC: HO.HUSH 08:51
PROVIDERS: PCP Internal Medicine; Visit Provider Urology
DX: R39.15 Urgency of urination (principal); N48.6 Induration penis plastica; R35.1 Nocturia; Z13.9 Encounter for screening, unspecified
CPT/HCPCS: 99214

== ENCOUNTER → 2024-11-01 08:50 | Outpatient (BNVA) | payer MEDICARE, SELFPAY | PROVIDERS: PCP Internal Medicine; Visit Provider Urology | DX: R39.15 Urgency of urination (principal); R35.1 Nocturia; N48.6 Induration penis plastica | CPT/HCPCS: 81003; 99212 ==

== ENCOUNTER 2025-01-31 08:58 | Outpatient (AMB) | payer MEDICARE, SELFPAY ==
--- NOTE | 2025-01-31 08:59 | A.OFFVIS_ITS ---
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 He is a patient of Dr. Duarte. He has seen for the following urologic conditions - lower urinary tract symptoms - Peyronie's disease Telemedicine Evaluation 15 min Consultation Fubles Antonio Video Two month follow-up from trial of tamsulosin Minimal benefit Minimal bother 12 month follow-up Response to daily tadalafil adequate for erection and stabilizing bladder Peyronie's stabilized with protocol Discussed options however distal hinge does not respond well to most therapy except for penile prosthetic placement At this stage willing to continue with observation Would like to try tamsulosin for urination Peyronie's 45 degree upward curvature Trial combination medical therapy with vacuum pump Lower urinary tract symptoms Prior evaluation with gross hematuria - persistent microscopic hematuria Cystoscopy mid 2022 Thinks has deviation of penis since then Nocturia 2-3 Hesitancy with urination PFSH Medical History (Updated 01/15/24 @ 14:51 by Ronnell Hermosillo MD) Gross hematuria Prostatism Lung nodules Hyperlipidemia Diverticulitis of colon Back pain Surgical History (Updated 01/15/24 @ 14:16 by MARIO Sewell) H/O inguinal hernia repair History of hand surgery Family History (Updated 01/15/24 @ 14:17 by MARIO Sewell) Father Prostate cancer Social History (Updated 01/15/24 @ 14:17 by MARIO Sewell) Patient Tobacco Use Status: Current someday Tobacco user Review of Systems Const All systems reviewed & are unremarkable except as noted in HPI and below Reports no additional complaints Resp Reports no additional complaints GI Reports no additional complaints Reports as per HPI Musc Reports no additional complaints Physical Exam Telemedicine evaluation Appropriate responses Regular breathing rate and rhythm HEENT Head: Yes normal to inspection Ears: hearing grossly normal bilaterally Eyes General: appearance normal, both eyes and all related structures Neck Neck: Yes normal visual inspection Chest Chest palpation & inspection: normal inspection of the chest Resp Effort & Inspection: normal respiratory effort and able to speak in complete sentences Telehealth Telehealth Telehealth Platform: Fubles Location of provider rendering services: practice address Location of patient: address on file Patient Identification confirmed using: Name, : Yes Telehealth method: video Patient verbally consented to treatment: Yes Patient verbally consented to billing insurance company: Yes Patient informed of any privacy concerns related to visit: Yes Assessment & Plan Assessment & Plan (1) Nocturia more than twice per night: Code(s): R35.1 - Nocturia Category: Medical (2) Urinary urgency: Code(s): R39.15 - Urgency of urination Category: Medical Plan Twelve month follow-up Patient Instructions: This note is constructed using voice recognition software. While every effort has been made to ensure accuracy custody officer errors may have been included. Imaging studies, laboratory and physical exam results were discussed and reviewed in detail. No major barriers to patient understanding were identified. An opportunity to ask questions regarding the treatment plan was provided. All questions were answered. The patient expressed understanding and agreement with the above treatment plan. The patient is aware they should contact our office by phone for worsening of their current condition or the appearance of new urologic symptoms. Compliance is encouraged with any medications and followup testing that is ordered. It is a privilege to participate in the urologic care of your patient. If you have any questions or concerns regarding treatment for the above conditions, or other urologic issues, please do not hesitate to contact me. The office telephone contact is [phone]. Sincerely, Dr Ronnell Hermosillo MD, [facility] - Urology Compassionate Specialist Care for the Genitourinary System Coding Level of Care Code Tele Est Pt Level 3 (16546) Diagnoses Nocturia more than twice per night R35.1 Urinary urgency R39.15
--- OUTSIDE RECORDS SUMMARY | 2025-01-31 09:24 | XMS_ITS ---
Author Name [facility] Organization Unknown History of Medication Use Medication Directions Dispensed Refills Start Date End Date Stat iohexoL (Omnipaque) 350 mg iodine/mL injection 80 mL 80 mL, intravenous, Once in imaging, contrast, Starting on Thu12/23/24 at 2043, For 1 dose 12/24/2024 12/24/2024 completed ketorolac (Toradol) injection 15 mg 15 mg, intravenous, Once, On Thu12/23/24 at 2038, For 1 dose, IV Push: Administer over a minimum of 15 seconds; may also be administered as a slow IV injection distributed evenly over 1 to 2 minutes IM: Administer undiluted . 12/24/2024 12/24/2024 completed sodium chloride 0.9 % flush 60 mL 60 mL, intravenous, Administer over 1 Minutes, Once in imaging, imaging study, Starting on Thu12/23/24 at 2043, For 1 dose 12/24/2024 12/24/2024 completed amoxicillin-pot clavulanate (Augmentin) 875-125 mg per tablet 1 tablet 1 tablet, oral, Once, On Thu12/23/24 at 2130, For 1 dose, Indication: Abdominal Infection, Type of Therapy: New Therapy 12/23/2024 12/24/2024 completed amoxicillin (AMOXIL) 875 mg tablet Take 1 tablet (875 mg total) by mouth 2 (two) times a day for 7 days. 12/22/2024 active benzonatate (TESSALON) 200 mg capsule Take 1 capsule (200 mg total) by mouth 3 (three) times a day if needed for cough. Do not crush or chew. 12/22/2024 active tamsulosin (Flomax) 0.4 mg 24 hr capsule Take 1 capsule (0.4 mg total) by mouth every night. 11/01/2024 active tadalafiL (CIALIS) 5 mg tablet Take 1 tablet (5 mg total) by mouth 1 (one) time each day. 04/12/2024 active guselkumab (Tremfya) 100 mg/mL auto-injector 04/28/2019 active calcium citrate-vitamin D3 (CITRACAL+D) 315 mg-5 mcg (200 unit) tablet Take 1 tablet by mouth 1 (one) time each day. active MULTIVITAMIN ORAL Take 1 capsule by mouth in the morning. active Problems Problem Status Onset Date Problem Type Date of Resolution Source Acute cough active EncounterDiagnosisAct [facility] Hyperlipidemia, mild active 2024-08-08 ProblemAct [facility] Benign prostatic hyperplasia with nocturia active 2024-08-05 ProblemAct [facility] Diverticulosis active 2024-08-08 ProblemAct [facility] Peyronie disease active 2024-08-05 ProblemAct [facility] Lipoma of left upper extremity active 2024-08-08 ProblemAct [facility] Psoriasis active 2024-08-05 ProblemAct [facility] Pulmonary nodules active 2024-08-08 ProblemAct [facility] Pulmonary nodule, left active 2024-10-04 ProblemAct [facility] Prostate cancer screening active 2024-08-05 ProblemAct [facility] Elevated blood pressure reading without diagnosis of hypertension active 2024-08-08 ProblemAct [facility] Other emphysema active 2024-10-[address] [facility] Immunizations Vaccine Date Source Lot Number Status [employer] Omicron 12yrs+ Vaccination (Comirnaty) 05/30/2024 C [facility] [id number] completed Influenza, Unspecified 05/09/2024 [facility] co mpleted Encounters Encounter Type Encounter Reason Primary Diagnosis Location Date Ambulatory Other specified cough Other specified cough [facility] 01/09/2025 Ambulatory Acute cough Acute cough [facility] 2024 Emergency Diverticulitis of intestine, part unspecified, without perforation or abscess without bleeding Diverticulitis of intestine, part unspecified, without perforation or abscess without bleeding [facility] 12/23/2024 Ambulatory Acute pharyngitis, unspecified Acute pharyngitis, unspecified [facility] 12/22/2024 Ambulatory Encounter for screening for malignant neoplasm of respiratory organs Encounter for screening for malignant neoplasm of respiratory organs [facility] 10/17/2024 Ambulatory Encounter for genera l adult medical examination without abnormal findings Encounter for general adult medical examination without abnormal findings [facility] 10/04/2024 Ambulatory Psoriasis, unspecified Psoriasis , unspecified [facility] 08/05/2024 Ambulatory Encounter for genera l adult medical examination without abnormal findings Encounter for general adult medical examination without abnormal findings [facility] 08/05/2024 Ambulatory Encounter for pre-employment examination Encounter for pre-employment examination [facility] 08/04/2024 Care Team Organization Name Specialty Phone Email Start Date End Da darlin [facility] 08/01/2024 [facility] 06/22/2024
--- OUTSIDE RECORDS SUMMARY | 2025-01-31 09:24 | XMS_ITS | Encounter Summary ---
Author Organization [facility] Address [address] [place] [address] Care Team Providers Care Covered Buckle Assembler Name Role Phone Jerry Aponte MD Primary Care Provider [phone] Encounter Details Date Type Department Care Team (Late st Contact Info) Description 12/23/2024 Results Follow-Up [facility] Primary Care [place] [address] [place] [id number] Bree Sprague APRN [address] [phone] SARS/FLU/RSV (Symptomatic patients only), Throat Beta Strep Culture Social History Tobacco Use Types Packs/Day Years [...] money to buy more. Never true 09/27/19 25 Ran Out of Food in the Last [...] on file documented as of this encounter Miscellaneous Notes * Telephone Encounter - Bree Sprague APRN - 01/09/2025 1:03 PM EDT XR CHEST 2 VIEWS Narrative: PROCEDURE: XR CHEST 2 VIEWS CLINICAL INDICATION: Acute cough, Cough, new onset COMPARISON: None. FINDINGS: Lungs are considered clear without hyperexpansion or peribronchial cuffing noted. Heart size and pulmonary vasculature appear within normal limits. No pleural effusion or significant localized bony abnormality is apparent with a slight mid dorsal dextroscoliotic curvature noted. Impression: No active appearing pulmonary parenchymal process identified. Patient has spoken with nurses and will be scheduled for a follow up visit re: ongoing cough. * Telephone Encounter - Sally Lewis MA - 01/09/2025 8:43 AM EDT Please advise documented in this encounter Plan of Treatment Upcoming Encounters Date Type Department Care Team (Late st Contact Info) Description 10/05/2025 8:45 AM EST Office Visit [facility] Care [place] [address] [phone] Jerry Aponte MD [address] [phone] wellness documented as of this encounter Visit Diagnoses Not on filedocumented in this encounter Additional Health Concerns Assessment Noted Time PHQ-9 Depression Total Score: 0 09/27/19 25 11:45 AM EST documented as of this encounter Care Teams Covered Buckle Assembler Relationship Specialty Start Date End Date Jerry Aponte MD [address] [place] [id number] PCP - General 07/29/24 documented as of this encounter
== END 2025-01-31 09:46 | disposition home or self-care (01) ==
PROVIDERS: Visit Provider Urology
DX: R35.1 Nocturia (principal); R39.15 Urgency of urination
CPT/HCPCS: 99213